=== PATIENT | male | born 1970 | race Caucasian/White ===

== ENCOUNTER 2021-05-30 11:25 | Observation (INO) | payer BC ==
[~2021-05-30] VITALS: Ht 170.2 cm; Wt 80.0 kg
--- NOTE | 2021-05-30 13:39 | NUR ---
Patient decides to leave without being seen. Multiple attempts made to encourage patient to remain here for medical screening exam. Explained to patient risks of leaving including possible . Patient verbalized understanding. Patient also encouraged to return to [facility] at any time, especially if symptoms continue or become worse. MD notified.
--- NOTE | 2021-05-30 14:43 | NUR ---
PATIENT TRIAGED IN OUTSIDE WAITING AREA AND PRACTIONER NOTIFIED OF PATIENT STATUS
--- NOTE | 2021-05-30 16:14 | NUR ---
PT TO ROOM # 7 VIA W/C
--- NOTE | 2021-05-30 17:00 | NUR ---
PT C/O MIDSTERNAL CHEST PAIN. PA NOTIFIED. EKG COMPLETED.
--- NOTE | 2021-05-30 18:00 | NUR ---
PATIENT DENIES ANT CHEST PAIN AT THIS TIME. VSS.
[2021-05-30 18:36] LABS: HEMATOCRIT 48.7 % (39.0-50.0); HEMOGLOBIN 16.1 g/dl (14.0-18.0); IMMATURE GRANULOCYTES 0.6 % (0.0-5.0); MEAN CELL VOLUME 84.1 fL CALC (80.0-100.0); MEAN CORPUSCULAR HGB 27.8 pG CALC (26.0-32.0); MEAN CORPUSCULAR HGB CONC 33.1 g/dL CAL (32.0-36.0); NEUT# 3.39 thou/uL (1.82-7.42); RED BLOOD COUNT 5.79 mill/uL (4.70-6.10); RED CELL DISTRI WIDTH 12.4 % (11.5-15.5)
[2021-05-30 18:51] LABS: ALBUMIN 4.6 g/dL (3.2-5.0); ALKALINE PHOSPHATASE 154 u/l (38-126); BILIRUBIN, TOTAL 0.6 mg/dL (0.0-1.4); BUN 15 mg/dL (9-20); BUN/CREATININE RATIO 18 (12-20 (CALC)); CHLORIDE 99 mmol/l (95-108); CREATININE 0.8 mg/dL (0.7-1.3); GFR > 60 ML/MIN (>=60 (CALC)); GFR FOR AFR.AMER. > 60 ML/MIN (>=60 (CALC)); POTASSIUM 4.5 mmol/l (3.5-5.1); SGOT/AST 111 u/l (17-59); SODIUM 135 mmol/l (137-146); TOTAL PROTEIN 9.8 g/dL (6.3-8.2)
[2021-05-30 18:53] LABS: ANION GAP 32 (6-22 (CALC)); CARBON DIOXIDE 9 mmol/l (22-30)
--- NOTE | 2021-05-30 19:00 | NUR ---
REPORT TO SARAH ROCA.
[2021-05-30] MEDS ORDERED: METFORMIN500 M2 PO (19:16)
--- NOTE | 2021-05-30 21:45 | NUR ---
MOVED TO ROOM 9 FOR ER HOLD. HOSPITAL BED.
[2021-05-31 05:13] LABS: HEMATOCRIT 43.2 % (39.0-50.0); HEMOGLOBIN 14.6 g/dl (14.0-18.0); MEAN CELL VOLUME 82.4 fL CALC (80.0-100.0); MEAN CORPUSCULAR HGB 27.9 pG CALC (26.0-32.0); MEAN CORPUSCULAR HGB CONC 33.8 g/dL CAL (32.0-36.0); NEUT# 3.35 thou/uL (1.82-7.42); RED BLOOD COUNT 5.24 mill/uL (4.70-6.10); RED CELL DISTRI WIDTH 12.2 % (11.5-15.5)
--- NOTE | 2021-05-31 05:29 | NUR ---
STATES FEELING AND BREATHING MUCH BETTER.
--- NOTE | 2021-05-31 05:34 | NUR ---
UOP 1000 CC CLEAR YELLOW
[2021-05-31 05:41] LABS: ANION GAP 25 (6-22 (CALC)); BUN 15 mg/dL (9-20); BUN/CREATININE RATIO 17 (12-20 (CALC)); C-REACTIVE PROTEIN 3.8 mg/dL (0-0.9); CHLORIDE 102 mmol/l (95-108); CREATININE 0.9 mg/dL (0.7-1.3); GFR > 60 ML/MIN (>=60 (CALC)); GFR FOR AFR.AMER. > 60 ML/MIN (>=60 (CALC)); POTASSIUM 4.7 mmol/l (3.5-5.1); SODIUM 133 mmol/l (137-146)
[2021-05-31 05:44] LABS: CARBON DIOXIDE 11 mmol/l (22-30)
--- NOTE | 2021-05-31 06:20 | NUR ---
RESTING COMFORTABLY. NAD.
[2021-05-31 07:52] LABS: CHOLESTEROL HDL RATIO 5.7 (<4.4 (CALC)); HDL CHOLESTEROL 38 mg/dL (>=40); MAGNESIUM 1.9 mg/dL (1.6-2.3); TOTAL CHOLESTEROL 218 mg/dl (0-199); TOTAL TRIGLYCERIDES 513 mg/dl (30-149)
--- NOTE | 2021-05-31 08:00 | NUR ---
SHIFT CHANGE REPORT, PT AWAKE ALERT AND ORIENTED RESTING IN BED, BREATHING SHALLOW, NON-PRODUCTIVE COUGH, CASE SEALER IN PLACE, IVF 0.9 NS @ 150 INITIATED, SITE IN [facility]. DR CORREA ORDERED 10 UNITS REGULAR INSULIN, GLUCOSE MONITOR UNABLE TO READ RESULTS TOO HIGH, LAB CHECK ORDERED, WILL CONTINUE TO MONITOR.
--- NOTE | 2021-05-31 12:00 | NUR ---
RESTING IN BED, ALL NEEDS ADDRESSED, CALL BELLO IN REACH
[2021-05-31 13:46] LABS: ALBUMIN 4.2 g/dL (3.2-5.0); ALKALINE PHOSPHATASE 116 u/l (38-126); ANION GAP 27 (6-22 (CALC)); BILIRUBIN, TOTAL 0.4 mg/dL (0.0-1.4); BUN 17 mg/dL (9-20); BUN/CREATININE RATIO 19 (12-20 (CALC)); CARBON DIOXIDE 10 mmol/l (22-30); CHLORIDE 102 mmol/l (95-108); CREATININE 0.9 mg/dL (0.7-1.3); GFR > 60 ML/MIN (>=60 (CALC)); GFR FOR AFR.AMER. > 60 ML/MIN (>=60 (CALC)); POTASSIUM 4.7 mmol/l (3.5-5.1); SGOT/AST 84 u/l (17-59); SODIUM 134 mmol/l (137-146); TOTAL PROTEIN 8.2 g/dL (6.3-8.2)
[2021-05-31 15:04] VITALS: BP 114/76
[2021-05-31] MEDS ORDERED: METOPROL TAR25 M1 PO (16:19)
[2021-05-31] MEDS ORDERED: ASPIRIN 81 LOW81 MG PO (16:20)
[2021-05-31] MEDS ORDERED: HYDROCHLOROTH12.5 MG PO (16:21)
[2021-05-31] MEDS ORDERED: LISINOPRIL40 MG PO (16:21)
[2021-05-31] MEDS ORDERED: LIPITOR40 M1 PO (16:22)
[2021-05-31] MEDS ORDERED: PRILOSEC20 MG/CAP PO (16:36)
[2021-05-31 18:20] LABS: ANION GAP 22 (6-22 (CALC)); BUN 16 mg/dL (9-20); BUN/CREATININE RATIO 23 (12-20 (CALC)); CARBON DIOXIDE 11 mmol/l (22-30); CHLORIDE 106 mmol/l (95-108); CREATININE 0.7 mg/dL (0.7-1.3); GFR > 60 ML/MIN (>=60 (CALC)); GFR FOR AFR.AMER. > 60 ML/MIN (>=60 (CALC)); POTASSIUM 4.8 mmol/l (3.5-5.1); SODIUM 134 mmol/l (137-146)
--- NOTE | 2021-05-31 22:15 | NUR ---
RECIEVED REPORT FROM SARAH COLEMAN, ASSUMED CARE OF PATIENT. PT REQUESTED KLEENEX. SITTING UP IN BED, HOB ELEVATED FOR COMFORT.
--- NOTE | 2021-05-31 23:11 | NUR ---
INSULIN DRIP STOPPED PER DR CORREA'S VERBAL ORDERS TO CHLOE MORIN RN TO STOP INSULIN TWO HOURS AFTER LEVEMIR ADMINISTERED. LEVIMIR WAS GIVEN BY SARAH COLEMAN AT [id number].
--- NOTE | 2021-06-01 02:00 | NUR ---
ASSUMED CARE. REPORT RECEIVED. PT RESTING. VSS. CM SR/ST 117.
--- NOTE | 2021-06-01 03:30 | NUR ---
HR INCREASE TO 141 BRIEFLY AND THEN RETURNED TO THE 1 TEENS. PT RESTING.
--- NOTE | 2021-06-01 05:30 | NUR ---
HR BACK UP TO 138 FOR A WHILE...NEW BAG OF IVF NEEDED. WILL BE HUNG. PT RESTING. NAD. ACCK 280.
[2021-06-01 05:55] LABS: HEMATOCRIT 41.1 % (39.0-50.0); HEMOGLOBIN 14.1 g/dl (14.0-18.0); MEAN CELL VOLUME 81.4 fL CALC (80.0-100.0); MEAN CORPUSCULAR HGB 27.9 pG CALC (26.0-32.0); MEAN CORPUSCULAR HGB CONC 34.3 g/dL CAL (32.0-36.0); RED BLOOD COUNT 5.05 mill/uL (4.70-6.10); RED CELL DISTRI WIDTH 12.1 % (11.5-15.5)
[2021-06-01 06:14] LABS: ANION GAP 19 (6-22 (CALC)); BUN 14 mg/dL (9-20); BUN/CREATININE RATIO 18 (12-20 (CALC)); CARBON DIOXIDE 13 mmol/l (22-30); CHLORIDE 105 mmol/l (95-108); CREATININE 0.8 mg/dL (0.7-1.3); GFR > 60 ML/MIN (>=60 (CALC)); GFR FOR AFR.AMER. > 60 ML/MIN (>=60 (CALC)); MAGNESIUM 1.6 mg/dL (1.6-2.3); POTASSIUM 3.7 mmol/l (3.5-5.1); SODIUM 133 mmol/l (137-146)
--- NOTE | 2021-06-01 07:00 | NUR ---
REPORT TO April LUND RN. PT RESTING. VSS.
--- NOTE | 2021-06-01 07:40 | NUR ---
PT SAT UP FOR BREAKFAST. PT ALERT AND ORIENTED X4. NO APPARENT DISTRESS NOTED. URINAL EMPTIED AT THIS TIME. PT ON 2L/M VIA NC, SAT 93%. PT DENIES ANY CURRENT WANTS OR NEEDS. CALL LIGHT WITHIN REACH. WILL CONTINUE TO MONITOR.
[2021-06-01] MEDS ORDERED: LEVEMIR FL100 UNIT/M SC (14:41)
--- NOTE | 2021-06-01 15:16 | NUR ---
Discharge instructions given. Patient verbalizes understanding of same. Discharged in good condition via Ambulatory to Home with spouse. All belongings sent with pt. Discharged to: Home Discharged via: Ambulatory Accompanied by: spouse D/C Condition: good Diet: 1200 SHAYNE ADA Diet modification: low sodium Activity: No strenuous activity Home Health: [facility] Follow up appointment: Special instructions: Medications: SEE MEDICATION RECONCILIATION FORM Prescriptions Given: Please notify your physician if you received either one of these vaccinations: Influenza Vaccine - Date: Pneumococcal Vaccine - Date: Patient Education Materials Provided: Yes - Food and Drug Interaction Guide Yes - Anticoagulation Education Booklet Contains the following information: 1. Compliance issues 2. Dietary advice 3. Follow up monitoring 4. Potential for adverse drug reactions and interactions Yes - Smoking Cessation Booklet IF SYMPTOMS WORSEN, OR IF YOU HAVE ADDITIONAL QUESTIONS, PLEASE CONTACT YOUR PERSONAL PHYSICIAN OR SEEK EMERGENCY CARE. CALL YOUR PHYSICIAN IF YOU DO NOT GET RELIEF FROM THE PAIN MEDICATIONS PRESCRIBED, OR IF THE INTENSITY OF PAIN INCREASES, OR IF PAIN IS INTERFERING WITH ACTIVITY OR REST. IF YOU SMOKE, YOU NEED TO QUIT. IT IS GOOD FOR YOU AND EVERYONE AROUND YOU! Your physician and [facility] care about you and your health. The facts are clear. Smoking causes 1 out of 5 deaths in the [place] each year. It is the major preventable cause of emphysema, lung cancer, chronic bronchitis, heart disease and stroke. Quitting is one of the best things you can ever do for yourself and those you love. What better time to quit than now! You've already been cigarette free during your stay. Studies have shown that the first 48 hours of quitting are the toughest. Just a few of the benefits your body begins to experience are blood pressure returns to normal, the carbon monoxide level in your blood drops to normal, your chance of heart attack decreases, and your ability to smell and taste is enhanced. Here are some resources that you may find helpful: [employer] www.lungusa.org www.cancer.org [employer] Heart [employer] [place] [employer] of [employer] (Tobacco Prevention and Control Program) www.americanheart.org www.[place].state.[place] Finally don't forget that your doctor may be able to help you. Whichever method you choose will be good for you. IF YOU HAVE A DIAGNOSIS OF CONGESTIVE HEART FAILURE, THERE ARE SEVERAL ADDITIONAL INSTRUCTIONS FOR YOU TO FOLLOW UPON DISCHARGE FROM THE HOSPITAL. Weigh yourself every day and if weight gain is greater than 2 pounds in a day, call your physican. If you experience worsening symptoms such as: Problems with breathing or shortness of breath Ankle/foot/leg swelling Unexplained weight gain greater than 2 pounds Call your physician or come to the emergency room. IF YOU HAVE A DIAGNOSIS OF STROKE, THERE ARE SEVERAL ADDITIONAL INSTRUCTIONS FOR YOU TO FOLLOW: A stroke occurs when something happens to interrupt the steady flow of blood to the brain, like a clot or a burst in a blood vessel. Brain cells quickly begin to . These INCREASE your chance of having a STROKE: * Smoking * High blood pressure * Diabetes * Obesity WARNING SIGNS OR SYMPTOMS: * Sudden weakness on one side of body. * Sudden confusion, trouble speaking or understanding. * Sudden trouble seeing. * Sudden trouble walking or loss of balance. * Sudden severe headache with no known cause. CALL 05-24- At Any Sign of Stroke. You can beat a stroke. Disabilities can be prevented or limited, but you have must go to the Emergency Department immediately. Go in an Ambulance. Save Time. Be Seen Faster! If you were admitted to the hospital for a stroke After DISCHARGE you must: * Keep ALL follow up appointments. * Take your medications as ordered by your doctor. * Do not take any other drugs without checking with your doctor first. * Do not drive unless your doctor says it is okay. * Call your doctor with any questions or concerns. IF YOU WERE DISCHARGED ON COUMADIN/WARFARIN ANTICOAGULATION THERAPY, THERE ARE SEVERAL ADDITIONAL INSTRUCTIONS FOR YOU TO FOLLOW: Anticoagulants are medications that help prevent blood clots. They are often prescribed for people with certain heart, lung and blood vessel diseases to help prevent heart attacks and strokes. IMPORTANT Anticoagulation medications have been used for many years, but it can be difficult to manage. That's because many factors can affect how they work-including small changes in dose or dose timing, what you eat or drink, other medications and stress. You and your doctor must work closely together to manage this important medication. * Take your medicine EXACTLY as instructed by your doctor. * You must have your blood drawn for PT/INR to monitor your medication. * Do not take any new medications, vitamins or herbal supplements without asking your doctor first. FOODS: * Eat the same amount of foods that contain Vitamin K every day. * Avoid or limit alcohol. * Avoid major changes in diet or notify your doctor first. FOLLOW UP MONITORING: See your physician within one week to monitor your condition. You will need to have blood tests performed to monitor the medication. DRUG INTERACTIONS: * Diet and medications can affect the PT/INR level. * Do not take or discontinue any medication or over the counter medication unless your doctor okays. * Warfarin/Coumadin increases the risk of bleeding. CALL YOUR PHYSICIAN IF: If you notice any signs of increased bleedin. Excessive bruising. 2. Abnormal bleeding from nose or gums. 3. [place], red or dark brown urine. 4. Minor bleeding or bright red blood from the bowel. CALL 911 OR GO TO THE HOSPITAL IF: 1. You have black tarry stools. 2. Sudden dizziness, faintness or weakness. 3. Cold or numbness in arm or leg. 4. Sudden chest pain. 5. Trouble talking or moving one side of body. 6. Coughing or vomiting bright red blood. 7. Severe headache or stomach pain. 8. Serious fall or hit to the head. Visit our website at [email or web address] You are going home today. Depending on your insurance coverage, you may be receiving a bill from the hospital for your hospital stay. If you have any question about your bill, please call the Business Office at [phone] or contact us at our web address: [email or web address]. If applicable, I have received my medication information as recommeded by my provider upon discharge. I have read and understand the above discharge instructions. Pt Signature: Date: Time: Witnessed by: Date: Time: Complete the record of communication to the next provider below. These discharge instructions, including discharge medications, is to be faxed to the next provider at the time of the patient's discharge. ____These instructions faxed to next Provider (Provider Name) on (Date) @ (Time) . ____The second provider involved in patient care following discharge has been faxed this information. These instructions faxed to (Provider-Home Health, Physical Therapy, Agency) on (Date) @ (Time) . OR ____Patient unable/unwilling to verbalize who the next provider of care will be, instructed patient to take these instructions to next appointment with healthcare provider.
[2021-06-01 15:19] VITALS: BP 151/75
--- NOTE | 2021-06-01 15:21 | NUR ---
Return to [facility] Emergency Department for any problems.Please call your doctor tomorrow or in the am to make a follow-up appointment.
== END 2021-06-01 15:19 | disposition home or self-care (01) | DRG 999 ==
LOC: ED 11:25 → ED-I 19:54 → MS2 05-31 14:10 → ED-I 05-31 14:56
PROVIDERS: Hospitalist; Nurse Practitioner; Physician Assistant Surgical; ADMIT Internal Medicine; ATTEND Internal Medicine
DX: U07.1 COVID-19 (principal); J12.82 Pneumonia due to coronavirus disease 2019; E11.10 Type 2 diabetes mellitus with ketoacidosis without coma; I10 Essential (primary) hypertension; Z79.84 Long term (current) use of oral hypoglycemic drugs
CPT/HCPCS: J1650